=== PATIENT | female | born 2000 | race Caucasian/White ===

== ENCOUNTER 2020-03-03 23:21 | Inpatient (IN) | payer BC ==
[2020-03-04] MEDS ORDERED: Lidocaine 1% 50 ML MDV INJECT PRN (01:07)
[2020-03-04] MEDS ORDERED: Nalbuphine 10 MG/ML Syringe IVPUSH PRN (01:07)
[2020-03-04] MEDS ORDERED: Sodium Chloride 0.9% 10 ML Syringe FLUSH PRN (01:07)
[2020-03-04] MEDS ORDERED: Oxytocin/Lactated Ringers 10 UNIT/1,000 ML BAG IV SCH ×2 (01:15→07:00)
[2020-03-04] MEDS: Lactated Ringers 1,000 ML IV SCH ×4 (02:00→12:22)
[2020-03-04] MEDS ORDERED: Ampicillin 2 GM in Sodium Chloride 0.9% 100 ML IV ONE (02:00)
[2020-03-04] MEDS ORDERED: fentaNYL 100 MCG/2 ML SDV EPIDUR PRN (03:15)
[2020-03-04] MEDS ORDERED: Ondansetron 4 MG/2 ML SDV IVPUSH PRN (03:15)
[2020-03-04] MEDS ORDERED: ePHEDrine 50 MG/ML SDV IVPUSH PRN (03:15)
--- NOTE | 2020-03-04 03:17 | PCM.PREANE ---
Preanesthetic Assessment - Anesthesia/Transfusion/Family Hx Anesthesia History: Prior Anesthesia Without Reaction Family History of Anesthesia Reaction: No Transfusion History: No Prior Transfusion(s) Intubation History: Unknown - Review of Systems General: No Symptoms Pulmonary: No Symptoms (Exercise induced asthma in high school/ no symptoms since) Cardiovascular: No Symptoms Gastrointestinal: No Symptoms, Diarrhea Neurological: No Symptoms - Physical Assessment NPO Status Date: 03/03/20 NPO Status Time: 17:00 Vital Signs: HR:73 SAT:99% BP:135/72 RESP:14 TEMP:98.4 Height: 1.8 m Weight: 109.316 kg ASA Class: 2 Mental Status: Alert & Oriented x3 Airway Class: Mallampati = 2 Dentition: Reports: Normal Dentition, Caries Thyro-Mental Finger Breadths: 3 Mouth Opening Finger Breadths: 3 ROM/Head Extension: Full Lungs: Clear to Auscultation, Normal Respiratory Effort Cardiovascular: Regular Rate, Regular Rhythm, No Murmurs - Lab Values: Laboratory Last Values WBC 16.15 K/mm3 (3.98-10.04) H 03/04/20 01:25 RBC 3.99 M/mm3 (3.98-5.22) 03/04/20 01:25 Hgb 12.2 gm/dl (11.2-15.7) 03/04/20 01:25 Hct 35.7 % (34.1-44.9) 03/04/20 01:25 MCV 89.5 fl (79.4-94.8) 03/04/20 01:25 MCH 30.6 pg (25.6-32.2) 03/04/20 01:25 MCHC 34.2 g/dl (32.2-35.5) 03/04/20 01:25 RDW Std Deviation 43.7 fL (36.4-46.3) 03/04/20 01:25 Plt Count 387 K/mm3 (182-369) H 03/04/20 01:25 MPV 9.0 fl (9.4-12.3) L 03/04/20 01:25 Neut % (Auto) 78.2 % (34.0-71.1) H 03/04/20 01:25 Lymph % (Auto) 15.6 % (19.3-51.7) L 03/04/20 01:25 [place] % (Auto) 5.1 % (4.7-12.5) 03/04/20 01:25 Eos % (Auto) 0.8 (0.7-5.8) 03/04/20 01:25 Baso % (Auto) 0.1 % (0.1-1.2) 03/04/20 01:25 Neut # (Auto) 12.61 K/mm3 (1.56-6.13) H 03/04/20 01:25 Lymph # (Auto) 2.52 K/mm3 (1.18-3.74) 03/04/20 01:25 [place] # (Auto) 0.83 K/mm3 (0.24-0.36) H 03/04/20 01:25 Eos # (Auto) 0.13 K/mm3 (0.04-0.36) 03/04/20 01:25 Baso # (Auto) 0.02 K/mm3 (0.01-0.08) 03/04/20 01:25 Membrane Rupture Positive H 03/03/20 23:55 Above labs reviewed and noted and within acceptable ranges to proceed with epidural. - Allergies Allergies/Adverse Reactions: Allergies Allergy/AdvReac Type Severity Reaction Status Date / Time No Known Allergies Allergy Verified 01/19/20 14:31 - Anesthesia Plan Pre-Op Medication Ordered: None - Acknowledgements Anesthesia Type Planned: Epidural Pt an Appropriate Candidate for the Planned Anesthesia: Yes Alternatives and Risks of Anesthesia Discussed w Pt/Guardian: Yes Pt/Guardian Understands and Agrees with Anesthesia Plan: Yes PreAnesthesia Questionnaire - CURRENT (IN HOUSE) MEDS Current Meds: Current Medications Lactated Ringer's (Ringers, Lactated) 1,000 mls @ 100 mls/hr IV ASDIRECTED [facility] Last Admin: 03/04/20 02:00 Dose: 100 mls/hr Oxytocin/Lactated Ringer's (Pitocin In Lr 10 Units/1,000 Ml) 10 unit in 1,000 mls @ 500 mls/hr IV .CONTINUOUS [facility] Ampicillin Sodium 1 gm/ Sodium (Chloride) 100 mls @ 200 mls/hr IV Q4H [facility] Lidocaine HCl (Xylocaine 1%) 50 ml INJECT .PRN PRN PRN Reason: Pain Nalbuphine HCl (Nubain) 10 mg IVPUSH Q2H PRN PRN Reason: Pain Sodium Chloride (Saline Flush) 10 ml FLUSH ASDIRECTED PRN PRN Reason: Keep Vein Open Discontinued Medications Ampicillin Sodium 2 gm/ Sodium (Chloride) 100 mls @ 200 mls/hr IV ONETIME ONE Stop: 03/04/20 02:29 Last Admin: 03/04/20 02:05 Dose: 200 mls/hr
[2020-03-04] MEDS: Bupivacaine/fentaNYL/NS 100 ML Bag EPIDUR SCH ×2 (03:36→12:03)
[2020-03-04] MEDS: Ampicillin 1 GM in Sodium Chloride 0.9% 100 ML IV SCH ×3 (06:15→13:50)
--- NOTE | 2020-03-04 06:37 | PCM.LDHP ---
L&D History of Present Illness - General Date of Service: 03/04/20 Admit Problem/Dx: Patient Status Order with Admit Dx/Problem 03/03/20 23:37 Patient Status [ADT] Routine 03/04/20 01:08 Patient Status [ADT] Routine Admission Diagnosis/Problem Admission Diagnosis/Problem Source of Information: Patient History Limitations: Reports: No Limitations - History of Present Illness Introduction:: Patient is a 19-year-old currently at 39-2/7 weeks who was admitted shortly before midnight due to spontaneous rupture of membranes and contractions. Rupture of membranes occurred at about 2044. Contractions were painful to patient upon admission. Currently comfortable with an epidural in place. Pain Score: 0 - Related Data Allergies/Adverse Reactions: Allergies Allergy/AdvReac Type Severity Reaction Status Date / Time No Known Allergies Allergy Verified 01/19/20 14:31 Past Medical History Respiratory History: Reports: Asthma Gastrointestinal History: Reports: Colon Polyp, GERD Genitourinary History: Reports: Renal Calculus Other Genitourinary History: ECSW lithotripsy procedure 2015 [employer] History: Reports: , Spontaneous : 2 Para: 0 LMP (Approximate): Musculoskeletal History: Reports: Back Pain, Chronic Other Musculoskeletal History: Elbow fracture, L wrist fx, R knee pain Neurological History: Reports: Concussion Other Neuro History: L4-5 bulging disk - chronic back pain Psychiatric History: Reports: Depression Dermatologic History: Reports: Other (See Below) Other Dermatologic History: cystic acne - Past Surgical History GI Surgical History: Reports: Colonoscopy, EGD Female Surgical History: Reports: D&C, Lithotripsy/ESWL Social & Family History - Family History Family Medical History: Noncontributory - Tobacco Use Smoking Status *Q: Former Smoker Years of Tobacco use: 2 Packs/Tins Daily: 0.2 Used Tobacco, but Quit: Yes Month/Year Tobacco Last Used: 03/2019 Second Hand Smoke Exposure: No - Alcohol Use Alcohol Use History: No - Recreational Drug Use Recreational Drug Use: No H&P Review of Systems - Review of Systems: Review Of Systems: See Below General: Reports: No Symptoms Pulmonary: Reports: No Symptoms Cardiovascular: Reports: No Symptoms Gastrointestinal: Reports: No Symptoms Genitourinary: Reports: No Symptoms Musculoskeletal: Reports: No Symptoms Psychiatric: Reports: No Symptoms Neurological: Reports: No Symptoms L&D Exam - Exam Exam: See Below - Vital Signs Vital Signs: Last Vital Signs Temp 36.9 C 03/04/20 01:07 Pulse 73 03/04/20 01:07 Resp 14 03/04/20 01:07 BP 135/72 03/04/20 01:07 Pulse Ox 96 03/04/20 04:45 Weight: 109.316 kg - OB Specific Contraction Intensity: Moderate to Strong Movement: Active Heart Tones: Present Heart Rate (FHR) Variability: Moderate (6-25 bmp) Presentation: Vertex - Engle Score Engle Score Cervix Position: Midposition Engle Score Consistency: Soft Engle Score Effacement: >80% Engle Score Dilation: > 5 cm Engle Score 's Station: -1 ,0 Engle Score Total: 11 - Exam General: Alert, Oriented, Cooperative Lungs: Clear to Auscultation, Normal Respiratory Effort Cardiovascular: Regular Rate, Regular Rhythm GI/Abdominal Exam: Soft, Non-Tender Genitourinary: Normal external exam Extremities: Normal Inspection Skin: Warm, Dry, Intact - Patient Data Lab Results Last 24 hrs: Laboratory Results - last 24 hr 03/03/20 03/04/20 Range/Units 23:55 01:25 WBC 16.15 H (3.98-10.04) K/mm3 RBC 3.99 (3.98-5.22) M/mm3 Hgb 12.2 (11.2-15.7) gm/dl Hct 35.7 (34.1-44.9) % MCV 89.5 (79.4-94.8) fl MCH 30.6 (25.6-32.2) pg MCHC 34.2 (32.2-35.5) g/dl RDW Std Deviation 43.7 (36.4-46.3) fL Plt Count 387 H (182-369) K/mm3 MPV 9.0 L (9.4-12.3) fl Neut % (Auto) 78.2 H (34.0-71.1) % Lymph % (Auto) 15.6 L (19.3-51.7) % [place] % (Auto) 5.1 (4.7-12.5) % Eos % (Auto) 0.8 (0.7-5.8) Baso % (Auto) 0.1 (0.1-1.2) % Neut # (Auto) 12.61 H (1.56-6.13) K/mm3 Lymph # (Auto) 2.52 (1.18-3.74) K/mm3 [place] # (Auto) 0.83 H (0.24-0.36) K/mm3 Eos # (Auto) 0.13 (0.04-0.36) K/mm3 Baso # (Auto) 0.02 (0.01-0.08) K/mm3 Membrane Rupture Positive H Result Diagrams: 03/04/20 01:25 - Problem List (1) 39 weeks gestation of SNOMED Code(s): 76893298 ICD Code: Z3A.39 - 39 WEEKS GESTATION OF Status: Acute Current Visit: Yes (2) Spontaneous rupture of amniotic membranes SNOMED Code(s): 763335128 ICD Code: [id number] - Status: Acute Current Visit: Yes (3) Rubella non-immune status, antepartum SNOMED Code(s): 527541073 ICD Code: O99.89 - OTH DISEASES AND CONDITIONS COMPL PREG/CHLDBRTH; Z28.3 - UNDERIMMUNIZATION STATUS Status: Acute Current Visit: Yes (4) GBS (group B Streptococcus carrier), +RV culture, currently SNOMED Code(s): 4392686838722, 612144720, 3799133065758 ICD Code: O99.820 - STREPTOCOCCUS B CARRIER STATE COMPLICATING Status: Acute Current Visit: Yes Problem List Initiated/Reviewed/Updated: Yes Orders Last 24hrs: Active Orders 24 hr Category Date Time Status Patient Status [ADT] Routine ADT 03/04/20 01:08 Active Activity as Tolerated [RC] PFP Care 03/04/20 01:07 Active Communication Order [RC] ASDIRECTED Care 03/04/20 01:07 Active Heart Tones [RC] ASDIRECTED Care 03/04/20 01:08 Active Non Stress Test [RC] PER UNIT ROUTINE Care 03/03/20 23:37 Active Notify Provider [RC] ASDIRECTED Care 03/04/20 03:15 Active Notify Provider [RC] PFP Care 03/04/20 01:07 Active Notify Provider [RC] PRN Care 03/04/20 01:07 Active Peripheral IV Care [RC] . DIRECTED Care 03/04/20 01:08 Active Vital Signs [RC] PER UNIT ROUTINE Care 03/03/20 23:37 Active Vital Signs [RC] PER UNIT ROUTINE Care 03/04/20 01:07 Active Regular Diet [DIET] Diet 03/04/20 Breakfast Active RAPID PLASMA REAGIN,RPR [CHEM] Routine Lab 03/04/20 01:25 Received Ampicillin 1 gm Med 03/04/20 06:00 Active Sodium Chloride 0.9% [Normal Saline] 100 ml IV Q4H Bupivacaine/fentaNYL/NS [fentaNYL/Bupivacaine/NS 2 MCG- Med 03/04/20 03:15 Active 0.125% 100 ML] 100 ml EPIDUR ASDIRECTED Lactated Ringers [Ringers, Lactated] 1,000 ml Med 03/04/20 01:15 Active IV ASDIRECTED Lidocaine 1% [Xylocaine 1%] Med 03/04/20 01:07 Active 50 ml INJECT .PRN PRN Nalbuphine [Nubain] Med 03/04/20 01:07 Active 10 mg IVPUSH Q2H PRN Ondansetron [Zofran] Med 03/04/20 03:15 Active 4 mg IVPUSH ONETIME PRN Oxytocin/Lactated Ringers [Pitocin in LR 10 Units/1,000 Med 03/04/20 01:15 Active ML] 10 unit in 1,000 ml IV .CONTINUOUS Sodium Chloride 0.9% [Saline Flush] Med 03/04/20 01:07 Active 10 ml FLUSH ASDIRECTED PRN ePHEDrine [ePHEDrine sulfate] Med 03/04/20 03:15 Active 5 mg IVPUSH ASDIRECTED PRN fentaNYL [Sublimaze] Med 03/04/20 03:15 Active 100 mcg EPIDUR Q3H PRN Electronic Heart Tones Ext w TOCO [WOMSER] Oth 03/04/20 01:07 Ordered Routine Electronic Heart Tones Internal [WOMSER] Per Unit Oth 03/04/20 01:07 Ordered Routine Peripheral IV Insertion Adult [OM.PC] Routine Oth 03/04/20 01:07 Ordered Resuscitation Status Routine Resus Stat 03/03/20 23:37 Ordered Medication Orders Ephedrine Sulfate (Ephedrine Sulfate) 5 mg IVPUSH ASDIRECTED PRN PRN Reason: Hypotension Fentanyl (Sublimaze) 100 mcg EPIDUR Q3H PRN PRN Reason: Pain Last Admin: 03/04/20 03:35 Dose: 100 mcg Fentanyl/Bupivacaine HCl (Fentanyl/Bupivacaine/Ns 2 Mcg-0.125% 100 Ml) 100 ml EPIDUR ASDIRECTED [facility] Last Admin: 03/04/20 03:36 Dose: 100 ml Lactated Ringer's (Ringers, Lactated) 1,000 mls @ 100 mls/hr IV ASDIRECTED [facility] Last Admin: 03/04/20 06:00 Dose: 100 mls/hr Infusion: 03/04/20 05:59 Dose: 500 mls/hr Infusion: 03/04/20 04:25 Dose: 500 mls/hr Infusion: 03/04/20 04:23 Dose: 100 mls/hr Admin: 03/04/20 04:10 Dose: 999 mls/hr Infusion: 03/04/20 04:08 Dose: 999 mls/hr Infusion: 03/04/20 03:15 Dose: 999 mls/hr Admin: 03/04/20 02:00 Dose: 100 mls/hr Oxytocin/Lactated Ringer's (Pitocin In Lr 10 Units/1,000 Ml) 10 unit in 1,000 mls @ 500 mls/hr IV .CONTINUOUS [facility] Ampicillin Sodium 1 gm/ Sodium (Chloride) 100 mls @ 200 mls/hr IV Q4H [facility] Last Admin: 03/04/20 06:15 Dose: 200 mls/hr Lidocaine HCl (Xylocaine 1%) 50 ml INJECT .PRN PRN PRN Reason: Pain Nalbuphine HCl (Nubain) 10 mg IVPUSH Q2H PRN PRN Reason: Pain Ondansetron HCl (Zofran) 4 mg IVPUSH ONETIME PRN PRN Reason: Nausea/Vomiting Sodium Chloride (Saline Flush) 10 ml FLUSH ASDIRECTED PRN PRN Reason: Keep Vein Open Assessment/Plan Comment:: * Labs done and normal * On Ampicillin for GBS positive status * Comfortable with epidural * On arrival 4 cm and now about 5 cm, greater than 6 hours between checks . Will start pitocin for augmentation * Anticipate * MMR after delivery
--- NOTE | 2020-03-04 12:28 | PCM.PNLD ---
Labor Progress Note - VS & Meds Vital Signs: Last Vital Signs Temp 36.9 C 03/04/20 01:07 Pulse 73 03/04/20 01:07 Resp 14 03/04/20 01:07 BP 135/72 03/04/20 01:07 Pulse Ox 96 03/04/20 04:45 Active Medications: Current Medications Ephedrine Sulfate (Ephedrine Sulfate) 5 mg IVPUSH ASDIRECTED PRN PRN Reason: Hypotension Fentanyl (Sublimaze) 100 mcg EPIDUR Q3H PRN PRN Reason: Pain Last Admin: 03/04/20 03:35 Dose: 100 mcg Fentanyl/Bupivacaine HCl (Fentanyl/Bupivacaine/Ns 2 Mcg-0.125% 100 Ml) 100 ml EPIDUR ASDIRECTED [facility] Last Admin: 03/04/20 12:03 Dose: 100 ml Lactated Ringer's (Ringers, Lactated) 1,000 mls @ 100 mls/hr IV ASDIRECTED [facility] Last Admin: 03/04/20 12:22 Dose: 100 mls/hr Oxytocin/Lactated Ringer's (Pitocin In Lr 10 Units/1,000 Ml) 10 unit in 1,000 mls @ 500 mls/hr IV .CONTINUOUS [facility] Ampicillin Sodium 1 gm/ Sodium (Chloride) 100 mls @ 200 mls/hr IV Q4H [facility] Last Admin: 03/04/20 10:03 Dose: 200 mls/hr Oxytocin/Lactated Ringer's (Pitocin In Lr 10 Units/1,000 Ml) 10 unit in 1,000 mls @ 12 mls/hr IV TITRATE [facility]; Protocol Last Titration: 03/04/20 10:45 Dose: 3 munits/min, 18 mls/hr Lidocaine HCl (Xylocaine 1%) 50 ml INJECT .PRN PRN PRN Reason: Pain Nalbuphine HCl (Nubain) 10 mg IVPUSH Q2H PRN PRN Reason: Pain Ondansetron HCl (Zofran) 4 mg IVPUSH ONETIME PRN PRN Reason: Nausea/Vomiting Sodium Chloride (Saline Flush) 10 ml FLUSH ASDIRECTED PRN PRN Reason: Keep Vein Open Discontinued Medications Ampicillin Sodium 2 gm/ Sodium (Chloride) 100 mls @ 200 mls/hr IV ONETIME ONE Stop: 03/04/20 02:29 Last Admin: 03/04/20 02:05 Dose: 200 mls/hr - Uterine Contractions Uterine Monitoring Mode: External [place] Contraction Intensity: Moderate to Strong Uterine Resting Tone: Soft - Monitoring Monitor Mode: External Ultrasound Heart Rate (FHR) Baseline: 125 Heart Rate (FHR) Variability: Moderate (6-25 bmp) Accelerations: Present, 15x15 Decelerations: Early, Variable Strip Review: Category II - Vaginal Exam Dilation (cm): 7 Effacement (Percent): 90 Station: 0 Cervical Position: Anterior - Labor Progress (Free Text) Labor Progress: Forebag felt and ruptured. Continue pitocin and present management
--- NOTE | 2020-03-04 15:17 | PCM.DEL ---
L & D Note - General Info Date of Service: 03/04/20 - Delivery Note Labor: Augmented by Oxytocin Delivery Outcome: Livebirth Delivery Method: Spontaneous Vaginal Delivery-Single Delivery Mode: Spontaneous Presentation: Right Occiput Anterior (DAX) Nuchal Cord: Present, Reduced Anesthesia Type: Epidural Amniotic Fluid Description: Clear Laceration: 2nd Degree, Labial (right) Suture type: Vicryl Suture size: 2-0 Placenta: Intact, Spontaneous Cord: 3 Vessels Estimated Blood Loss: 300 Resuscitation Needed: Yes [place]: Bulb Syringe, Stimulated, Warmed, [place] Used, Warmer Used Delivery Comments (Free Text/Narrative):: Patient found to be complete and began pushing. With maternal pushing effort head delivered from DAX presentation. Nuchal present and reduced. With gentle downward traction the shoulders and body delivered. Infant placed on maternal abdomen. Cord clamped and cut. Cord blood obtained. Placenta allowed time to separate and expelled intact. Inspection of perineum showed a 2n degree perineal laceration which was repaired with a 2-0 vicryl in the typical fashion and then a small laceration on the medial aspect of the right labia which was repaired with several interrupted sutures of 2-0 vicryl. - General Info Date of Service: 03/04/20 - Patient Data Vitals - Most Recent: Last Vital Signs Temp 36.9 C 03/04/20 01:07 Pulse 73 03/04/20 01:07 Resp 14 03/04/20 01:07 BP 135/72 03/04/20 01:07 Pulse Ox 96 03/04/20 04:45 Weight - Most Recent: 109.316 kg I&O - Last 24 Hours: Intake & Output 03/04/20 03/04/20 03/04/20 06:59 14:59 22:59 Intake Total 2100 1000 Output Total 1575 Balance 2100 -575 - Problem List & Annotations (1) 39 weeks gestation of SNOMED Code(s): 84499112 Code(s): Z3A.39 - 39 WEEKS GESTATION OF Status: Acute Current Visit: Yes (2) Spontaneous rupture of amniotic membranes SNOMED Code(s): 463220551 Code(s): WNF1556 - Status: Acute Current Visit: Yes (3) Rubella non-immune status, antepartum SNOMED Code(s): 943354809 Code(s): O99.89 - OTH DISEASES AND CONDITIONS COMPL PREG/CHLDBRTH; Z28.3 - UNDERIMMUNIZATION STATUS Status: Acute Current Visit: Yes (4) GBS (group B Streptococcus carrier), +RV culture, currently SNOMED Code(s): 8413877928358, 142559482, 0183099943425 Code(s): O99.820 - STREPTOCOCCUS B CARRIER STATE COMPLICATING Status: Acute Current Visit: Yes (5) Vaginal delivery SNOMED Code(s): 078480362 Code(s): O80 - ENCOUNTER FOR FULL-TERM UNCOMPLICATED DELIVERY Status: Acute Current Visit: Yes - Problem List Review Problem List Initiated/Reviewed/Updated: Yes - My Orders Last 24 Hours: My Active Orders 03/03/20 23:37 Vital Signs [RC] PER UNIT ROUTINE Resuscitation Status Routine 03/04/20 01:07 Activity as Tolerated [RC] PFP Communication Order [RC] ASDIRECTED Notify Provider [RC] PFP Notify Provider [RC] PRN Vital Signs [RC] PER UNIT ROUTINE Lidocaine 1% [Xylocaine 1%] 50 ml INJECT .PRN PRN Nalbuphine [Nubain] 10 mg IVPUSH Q2H PRN Sodium Chloride 0.9% [Saline Flush] 10 ml FLUSH ASDIRECTED PRN Electronic Heart Tones Ext w TOCO [WOMSER] Routine Electronic Heart Tones Internal [WOMSER] Per Unit Routine Peripheral IV Insertion Adult [OM.PC] Routine 03/04/20 01:08 Patient Status [ADT] Routine Heart Tones [RC] ASDIRECTED Peripheral IV Care [RC] Q2HR 03/04/20 01:15 Lactated Ringers [Ringers, Lactated] 1,000 ml IV ASDIRECTED Oxytocin/Lactated Ringers [Pitocin in LR 10 Units/1,000 ML] 10 unit in 1,000 ml IV .CONTINUOUS 03/04/20 01:25 RAPID PLASMA REAGIN,RPR [CHEM] Routine 03/04/20 06:00 Ampicillin 1 gm Sodium Chloride 0.9% [Normal Saline] 100 ml IV Q4H 03/04/20 07:00 Oxytocin/Lactated Ringers [Pitocin in LR 10 Units/1,000 ML] 10 unit in 1,000 ml IV TITRATE 04/23/20 Breakfast Regular Diet [DIET] - Assessment Assessment:: PPD#0 - Plan Plan:: * Routine cares * Breast feeding * Discharge in 1-2 days
[2020-03-04] MEDS ORDERED: Witch Hazel Medicated Pads 40/Jar TOP PRN (16:33)
[2020-03-04] MEDS ORDERED: Acetaminophen 325 MG Tab PO PRN (16:33)
[2020-03-04] MEDS ORDERED: Docusate Sodium 100 MG Cap PO PRN (16:33)
[2020-03-04] MEDS ORDERED: Benzocaine/Menthol 20%-0.5% Spray 56 GM Canister TOP PRN (16:33)
[2020-03-04] MEDS ORDERED: Ibuprofen 600 MG Tab PO PRN (16:33)
--- NOTE | 2020-03-05 07:06 | PCM.PNPP ---
- General Info Date of Service: 03/05/20 Functional Status: Reports: Pain Controlled, Tolerating Diet, Ambulating, Urinating - Review of Systems General: Reports: No Symptoms Pulmonary: Reports: No Symptoms Cardiovascular: Reports: No Symptoms Gastrointestinal: Reports: No Symptoms Genitourinary: Reports: No Symptoms Musculoskeletal: Reports: No Symptoms - General Info Date of Service: 03/05/20 - Patient Data Vital Signs - Most Recent: Last Vital Signs Temp 37.6 C 03/04/20 18:30 Pulse 67 03/04/20 18:30 Resp 16 03/04/20 18:30 BP 134/71 03/04/20 18:30 Pulse Ox 96 03/04/20 04:45 Weight - Most Recent: 109.316 kg Lab Results - Last 24 Hours: Laboratory Results - last 24 hr 03/04/20 Range/Units 01:25 RPR Non-reactive (NONREACTIVE) Med Orders - Current: Current Medications Acetaminophen (Tylenol) 650 mg PO Q4H PRN PRN Reason: mild pain or fever Benzocaine/Menthol (Dermoplast Pain Relief [place]) 0 gm TOP ASDIRECTED PRN PRN Reason: Perineal Comfort Measure Last Admin: 03/04/20 16:30 Dose: 1 spray Docusate Sodium (Colace) 100 mg PO BID PRN PRN Reason: Constipation Ibuprofen (Motrin) 600 mg PO Q6H PRN PRN Reason: Mild pain or fever Last Admin: 03/04/20 16:30 Dose: 600 mg Witch Cindy (Tucks) 1 pad TOP ASDIRECTED PRN PRN Reason: Perineal Comfort Measure Last Admin: 03/04/20 16:30 Dose: 1 pad Discontinued Medications Ephedrine Sulfate (Ephedrine Sulfate) 5 mg IVPUSH ASDIRECTED PRN PRN Reason: Hypotension Fentanyl (Sublimaze) 100 mcg EPIDUR Q3H PRN PRN Reason: Pain Last Admin: 03/04/20 03:35 Dose: 100 mcg Fentanyl/Bupivacaine HCl (Fentanyl/Bupivacaine/Ns 2 Mcg-0.125% 100 Ml) 100 ml EPIDUR ASDIRECTED [facility] Last Admin: 03/04/20 12:03 Dose: 100 ml Lactated Ringer's (Ringers, Lactated) 1,000 mls @ 100 mls/hr IV ASDIRECTED [facility] Last Admin: 03/04/20 12:22 Dose: 100 mls/hr Oxytocin/Lactated Ringer's (Pitocin In Lr 10 Units/1,000 Ml) 10 unit in 1,000 mls @ 500 mls/hr IV .CONTINUOUS [facility] Ampicillin Sodium 2 gm/ Sodium (Chloride) 100 mls @ 200 mls/hr IV ONETIME ONE Stop: 03/04/20 02:29 Last Admin: 03/04/20 02:05 Dose: 200 mls/hr Ampicillin Sodium 1 gm/ Sodium (Chloride) 100 mls @ 200 mls/hr IV Q4H [facility] Last Admin: 03/04/20 13:50 Dose: 200 mls/hr Oxytocin/Lactated Ringer's (Pitocin In Lr 10 Units/1,000 Ml) 10 unit in 1,000 mls @ 12 mls/hr IV TITRATE [facility]; Protocol Last Titration: 03/04/20 12:59 Dose: 4 munits/min, 24 mls/hr Lidocaine HCl (Xylocaine 1%) 50 ml INJECT .PRN PRN PRN Reason: Pain Nalbuphine HCl (Nubain) 10 mg IVPUSH Q2H PRN PRN Reason: Pain Ondansetron HCl (Zofran) 4 mg IVPUSH ONETIME PRN PRN Reason: Nausea/Vomiting Sodium Chloride (Saline Flush) 10 ml FLUSH ASDIRECTED PRN PRN Reason: Keep Vein Open - Infant Interaction Disposition, : in Room with Family Infant Interaction: Holding Feeding: Attempted ; Nursed Fair/Poor, Bottle Fed Infant Support Person: Significant Other - Recovery Exam Fundal Tone: Firm Fundal Level: At Umbilicus Fundal Placement: Midline Lochia Amount: Small, Moderate Lochia Color: Rubra/Red Perineum Description: Edematous Episiotomy/Laceration: Approximated Bladder Status: Voiding Urinary Elimination: Voided - Exam General: Alert, Oriented, Cooperative GI/Abdominal Exam: Soft, Non-Tender Extremities: Normal Inspection Skin: Warm, Dry, Intact - Problem List & Annotations (1) 39 weeks gestation of SNOMED Code(s): 67069723 Code(s): Z3A.39 - 39 WEEKS GESTATION OF Status: Acute Current Visit: Yes (2) Spontaneous rupture of amniotic membranes SNOMED Code(s): 860916862 Code(s): BFU5162 - Status: Acute Current Visit: Yes (3) Rubella non-immune status, antepartum SNOMED Code(s): 483925924 Code(s): O99.89 - OTH DISEASES AND CONDITIONS COMPL PREG/CHLDBRTH; Z28.3 - UNDERIMMUNIZATION STATUS Status: Acute Current Visit: Yes (4) GBS (group B Streptococcus carrier), +RV culture, currently SNOMED Code(s): 8463247116023, 316988705, 1603780052979 Code(s): O99.820 - STREPTOCOCCUS B CARRIER STATE COMPLICATING Status: Acute Current Visit: Yes (5) Vaginal delivery SNOMED Code(s): 963535286 Code(s): O80 - ENCOUNTER FOR FULL-TERM UNCOMPLICATED DELIVERY Status: Acute Current Visit: Yes - Problem List Review Problem List Initiated/Reviewed/Updated: Yes - My Orders Last 24 Hours: My Active Orders 03/04/20 16:33 Activity as Tolerated [RC] PER UNIT ROUTINE Vital Signs [RC] 03,09,15,21 Acetaminophen [Tylenol] 650 mg PO Q4H PRN Benzocaine/Menthol [Dermoplast Pain Relief [place]] See Dose Instructions TOP ASDIRECTED PRN Docusate Sodium [Colace] 100 mg PO BID PRN Ibuprofen [Motrin] 600 mg PO Q6H PRN witch Cindy [Tucks] 1 pad TOP ASDIRECTED PRN Assess Lochia [WOMSER] Per Unit Routine Assess Uterine Involution [WOMSER] Per Unit Routine Breast Pump [WOMSER] Per Unit Routine Heat Therapy [OM.PC] PRN Ice Therapy [OM.PC] Per Unit Routine Perineal Care [OM.PC] Per Unit Routine Peripheral IV Discontinue [OM.PC] Routine Sitz Bath [OM.PC] Per Unit Routine 03/04/20 Dinner Regular Diet [DIET] 03/05/20 16:33 Heat Therapy [OM.PC] PRN - Assessment Assessment:: PPD#1 - Plan Plan:: * Routine cares * Breast feeding and supplementing. Patient states she may switch to bottle only. * Patient with interest in discharge today. Reviewed will leave up to Peds team. * MMR prior to discharge
--- NOTE | 2020-03-05 07:52 | PCM48HPAN ---
Post Anesthesia Note - EVALUATION WITHIN 48HRS OF ANESTHETIC Vital Signs in Normal Range: Yes Patient Participated in Evaluation: Yes Respiratory Function Stable: Yes Airway Patent: Yes Cardiovascular Function Stable: Yes Hydration Status Stable: Yes Pain Control Satisfactory: Yes Nausea and Vomiting Control Satisfactory: Yes Mental Status Recovered: Yes Vital Signs: Last Vital Signs Temp 37.6 C 03/04/20 18:30 Pulse 67 03/04/20 18:30 Resp 16 03/04/20 18:30 BP 134/71 03/04/20 18:30 Pulse Ox 96 03/04/20 04:45
[2020-03-05] MEDS ORDERED: Measles, Mumps & Rubella Vaccine 0.5 ML SDV SUBCUT ONE (16:00)
--- NOTE | 2020-03-06 07:57 | PCM.DCSUM1 ---
Discharge Summary - Hospital Course Free Text/Narrative:: Emmy is a 19-year-old 2 para 1011 white female was admitted on 2019 at 39-2/7 weeks with spontaneous rupture membranes in early labor. Underwent active labor, had an epidural for analgesia. She was group B strep positive and did receive antibiotic prophylaxis for this with ampicillin. She progressed to complete and delivered a rangel viable infant. patient has done well. She has had some borderline blood pressures, Reflexes are within normal and there is no signs of preeclampsia at this time. She is ambulating well, voiding without problems and has minimal lochia. At this time the patient is desiring discharge home. Diagnosis: Stroke: No - Discharge Data Discharge Date: 03/06/20 Discharge Disposition: Home, Self-Care 01 Condition: Good - Referral to Home Health Primary Care Physician: Margret Wong MD - Patient Instructions Diet: Regular Diet as Tolerated Activity: As Tolerated (No intercourse or tampons still bleeding results) Driving: May Drive Today Showering/Bathing: May Shower (May take a bath) Notify Provider of: Fever, Increased Pain, Swelling and Redness, Nausea and/or Vomiting - Discharge Plan Home Medications: Home Meds Vits #93/Iron Fum/FA [ Formula Tablet] 1 each PO DAILY [History] Acetaminophen [Tylenol] 650 mg PO Q4H PRN tablet 03/06/20 [Rx] Ibuprofen [Motrin] 600 mg PO Q6H PRN tablet 03/06/20 [Rx] Referrals: Margret Wong MD [Primary Care Provider] - (The patient is to call [facility] to set up an appointment with Dr. Wong.) - Discharge Summary/Plan Comment DC Time >30 min.: No Discharge Summary/Plan Comment: Discharge instructions: 1. Discharge home 2. Diet, activity and follow-up discussed with patient. 3. Precautions given concern increased pain, bleeding, temperature, signs/ symptoms of DVT/PE. 4. Medications per home medication was printed, discussed with and given to the patient. 5. The patient is to call [facility] to set up a follow-up appointment with Dr. Wong. Diagnosis: Term -delivered Condition: Good - Patient Data Vitals - Most Recent: Last Vital Signs Temp 36.9 C 03/06/20 01:59 Pulse 59 L 03/06/20 01:59 Resp 14 03/05/20 16:06 BP 136/81 03/06/20 01:59 Pulse Ox 98 03/06/20 01:59 Weight - Most Recent: 109.316 kg Med Orders - Current: Current Medications Acetaminophen (Tylenol) 650 mg PO Q4H PRN PRN Reason: mild pain or fever Benzocaine/Menthol (Dermoplast Pain Relief [place]) 0 gm TOP ASDIRECTED PRN PRN Reason: Perineal Comfort Measure Last Admin: 03/04/20 16:30 Dose: 1 spray Docusate Sodium (Colace) 100 mg PO BID PRN PRN Reason: Constipation Ibuprofen (Motrin) 600 mg PO Q6H PRN PRN Reason: Mild pain or fever Last Admin: 03/04/20 16:30 Dose: 600 mg Witch Jany (Tucks) 1 pad TOP ASDIRECTED PRN PRN Reason: Perineal Comfort Measure Last Admin: 03/04/20 16:30 Dose: 1 pad Discontinued Medications Ephedrine Sulfate (Ephedrine Sulfate) 5 mg IVPUSH ASDIRECTED PRN PRN Reason: Hypotension Fentanyl (Sublimaze) 100 mcg EPIDUR Q3H PRN PRN Reason: Pain Last Admin: 03/04/20 03:35 Dose: 100 mcg Fentanyl/Bupivacaine HCl (Fentanyl/Bupivacaine/Ns 2 Mcg-0.125% 100 Ml) 100 ml EPIDUR ASDIRECTED [facility] Last Admin: 03/04/20 12:03 Dose: 100 ml Lactated Ringer's (Ringers, Lactated) 1,000 mls @ 100 mls/hr IV ASDIRECTED [facility] Last Admin: 03/04/20 12:22 Dose: 100 mls/hr Oxytocin/Lactated Ringer's (Pitocin In Lr 10 Units/1,000 Ml) 10 unit in 1,000 mls @ 500 mls/hr IV .CONTINUOUS [facility] Ampicillin Sodium 2 gm/ Sodium (Chloride) 100 mls @ 200 mls/hr IV ONETIME ONE Stop: 03/04/20 02:29 Last Admin: 03/04/20 02:05 Dose: 200 mls/hr Ampicillin Sodium 1 gm/ Sodium (Chloride) 100 mls @ 200 mls/hr IV Q4H [facility] Last Admin: 03/04/20 13:50 Dose: 200 mls/hr Oxytocin/Lactated Ringer's (Pitocin In Lr 10 Units/1,000 Ml) 10 unit in 1,000 mls @ 12 mls/hr IV TITRATE DIANA; Protocol Last Titration: 03/04/20 12:59 Dose: 4 munits/min, 24 mls/hr Lidocaine HCl (Xylocaine 1%) 50 ml INJECT .PRN PRN PRN Reason: Pain Measles/Mumps/Rubella Vaccine Live (M-M-R Ii Vaccine) 0.5 ml SUBCUT .ONCE ONE Stop: 03/05/20 16:01 Last Admin: 03/05/20 15:59 Dose: 0.5 ml Nalbuphine HCl (Nubain) 10 mg IVPUSH Q2H PRN PRN Reason: Pain Ondansetron HCl (Zofran) 4 mg IVPUSH ONETIME PRN PRN Reason: Nausea/Vomiting Sodium Chloride (Saline Flush) 10 ml FLUSH ASDIRECTED PRN PRN Reason: Keep Vein Open
== END 2020-03-06 09:35 | disposition home or self-care (01) | DRG 560 ==
LOC: JD.OBCHECK 23:21 → JD.OB 23:26 → JD.OBCHECK 03-04 01:17 → OBSVTOIN 03-04 15:17 → JD.OB 03-04 17:35
PROVIDERS: ADMIT Obstetrics & Gynecology; ATTEND Obstetrics & Gynecology
PROC: 10E0XZZ Delivery of Products of Conception, External Approach (ICD-10-PCS; principal; 2020-03-04)
PROC: 0KQM0ZZ Repair Perineum Muscle, Open Approach (ICD-10-PCS; 2020-03-04)
PROC: 3E0R3BZ Introduction of Anesthetic Agent into Spinal Canal, Percutaneous Approach (ICD-10-PCS; 2020-03-04)
PROC: 3E0234Z Introduction of Serum, Toxoid and Vaccine into Muscle, Percutaneous Approach (ICD-10-PCS; 2020-03-05)
DX: O99.824 Streptococcus B carrier state complicating childbirth (principal); Z3A.39 39 weeks gestation of pregnancy; Z37.0 Single live birth; O69.81X0 Labor and delivery complicated by cord around neck, without compression, not applicable or unspecified; Z87.891 Personal history of nicotine dependence; O70.1 Second degree perineal laceration during delivery; Z28.3 Underimmunization status; O99.89 Other specified diseases and conditions complicating pregnancy, childbirth and the puerperium; Z23 Encounter for immunization
CPT/HCPCS: 36415; 51702; 59025; 59409; 84112; 85025; 86592; 90471; 90707; A9270-GY; J0290; J2590; J3010; J7050; J7120

== ENCOUNTER 2021-12-31 12:21 | Inpatient (IN) | payer BC ==
[~2021-12-31 12:21] MED LIST: Lidocaine 2% with EPINEPHrine 1:200,000 20 ML SDV ONE
[2021-12-31] MEDS ORDERED: Nalbuphine 10 MG/1 ML Vial IVPUSH PRN (13:20)
[2021-12-31] MEDS ORDERED: Sodium Chloride 0.9% 10 ML Syringe FLUSH PRN (13:20)
[2021-12-31] MEDS ORDERED: Lidocaine 1% 50 ML MDV INJECT ONE (13:20)
[2021-12-31] MEDS ORDERED: Acetaminophen 325 MG Tab PO PRN (13:20)
[2021-12-31] MEDS ORDERED: Oxytocin/Lactated Ringers 10 UNIT/1,000 ML BAG IV SCH ×2 (13:30)
[2021-12-31] MEDS: Lactated Ringers 1,000 ML IV SCH ×3 (14:06→21:59)
[2021-12-31] MEDS ORDERED: ePHEDrine 50 MG/ML SDV IVPUSH PRN (17:11)
[2021-12-31] MEDS ORDERED: Bupivacaine/fentaNYL/NS 100 ML Bag EPIDUR PRN (17:11)
[2021-12-31] MEDS ORDERED: diphenhydrAMINE 50 MG/ML SDV IVPUSH PRN (17:11)
[2021-12-31] MEDS ORDERED: fentaNYL 100 MCG/2 ML SDV EPIDUR PRN (17:11)
[2021-12-31] MEDS ORDERED: Sodium Chloride 0.9% 10 ML Syringe FLUSH SCH (21:00)
[2022-01-01] MEDS ORDERED: FLU Vacc QS2021-22 36MOS UP/PF 60 MCG/0.5 ML Syringe IM ONE (21:45)
== END 2022-01-01 22:51 | disposition home or self-care (01) | DRG 560 ==
LOC: JD.OBCHECK 12:21 → JD.OB 12:21 → JD.OBCHECK 13:19 → JD.OB 13:20 → OBSVTOIN 22:23 → JD.OB 22:24
PROVIDERS: ADMIT Obstetrics & Gynecology; ATTEND Obstetrics & Gynecology
PROC: 10E0XZZ Delivery of Products of Conception, External Approach (ICD-10-PCS; principal; 2021-12-31)
PROC: 0HQ9XZZ Repair Perineum Skin, External Approach (ICD-10-PCS; 2021-12-31)
PROC: 3E0234Z Introduction of Serum, Toxoid and Vaccine into Muscle, Percutaneous Approach (ICD-10-PCS; 2022-01-01)
DX: O99.62 Diseases of the digestive system complicating childbirth (principal); Z37.0 Single live birth; K21.9 Gastro-esophageal reflux disease without esophagitis; O99.52 Diseases of the respiratory system complicating childbirth; J45.909 Unspecified asthma, uncomplicated; Z87.891 Personal history of nicotine dependence; O69.81X0 Labor and delivery complicated by cord around neck, without compression, not applicable or unspecified; O70.0 First degree perineal laceration during delivery; Z20.822 Contact with and (suspected) exposure to COVID-19; Z23 Encounter for immunization; Z3A.38 38 weeks gestation of pregnancy
CPT/HCPCS: 36415; 51702; 59025; 59409; 85025; 86592; 90686; G0008; J2590; J3010; J7120; U0002